=== PATIENT | female | born 1965 | race Caucasian/White ===

== ENCOUNTER 2019-09-27 14:42 | Emergency (ER) | payer SELFPAY ==
--- NOTE | 2019-09-27 15:31 | EDM.PDOC ---
ED HPI GENERAL MEDICAL PROBLEM - General Chief Complaint: Upper Extremity Injury/Pain Stated Complaint: left wrist pain Time Seen by Provider: 09/27/19 15:00 Source of Information: Reports: Patient History Limitations: Reports: No Limitations - History of Present Illness INITIAL COMMENTS - FREE TEXT/NARRATIVE: She is complaining of pain in the left wrist. Diffuse aching pain, increased with any active movement. States she has had pain for a year. More severe pain and swelling since yesterday. Pain is most severe at the base of the thumb. No injury she is aware of. No recent change in activity. She has been taking ibuprofen 1-2 times daily. No other treatment. Treatments REGISTERED PHLEBOTOMIST PART TIME: Reports: NSAIDS Left Wrist Pain Score (Numeric/FACES): 10 - Related Data Allergies Allergy/AdvReac Type Severity Reaction Status Date / Time No Known Allergies Allergy Verified 09/27/19 14:48 Home Meds: Home Meds Acetaminophen [Tylenol] 650 mg PO Q4HR PRN 09/27/19 [History] Ibuprofen 2 - 3 tab PO Q6HR PRN 09/27/19 [History] Past Medical History - Past Health History Medical/Surgical History: Denies Medical/Surgical History Social & Family History - Tobacco Use Smoking Status *Q: Current Every Day Smoker Years of Tobacco use: 40 Packs/Tins Daily: 0.2 Used Tobacco, but Quit: No Second Hand Smoke Exposure: Yes - Caffeine Use Caffeine Use: Reports: Coffee - Recreational Drug Use Recreational Drug Use: No Review of Systems - Review of Systems Review Of Systems: See Below Constitutional: Reports: No Symptoms Eyes: Reports: No Symptoms Ears: Reports: No Symptoms Nose: Reports: No Symptoms Mouth/Throat: Reports: No Symptoms Respiratory: Reports: No Symptoms Cardiovascular: Reports: No Symptoms GI/Abdominal: Reports: No Symptoms Genitourinary: Reports: No Symptoms Musculoskeletal: Reports: Joint Pain Skin: Reports: No Symptoms Neurological: Reports: No Symptoms Psychiatric: Reports: No Symptoms ED EXAM, GENERAL - Physical Exam Exam: See Below Free Text/Narrative:: Healthy appearing woman in no acute distress. Left wrist: Mild diffuse swelling. No discoloration or warmth to touch. Sharp tenderness at the first CMC joint. Mild diffuse tenderness otherwise. 45 degrees flexion and extension limited by pain. Negative tinnel test. Right Wrist: No swelling or deformity. No tenderness Full ROM without pain. General Appearance: Alert, No Apparent Distress Course - Vital Signs Last Recorded V/S: Last Vital Signs Temp 36.1 C 09/27/19 14:59 Pulse 96 09/27/19 14:59 Resp 18 09/27/19 14:59 BP 113/76 09/27/19 14:59 Pulse Ox 94 L 09/27/19 14:59 - Orders/Labs/Meds Orders: Active Orders 24 hr Category Date Time Status Wrist Comp Min 3V Lt [CR] Stat Exams 09/27/19 14:47 Taken - Radiology Interpretation Free Text/Narrative:: X-RAY 3 views of the left wrist: Findings: Severe DJD in the 1st MCP joint. Mild diffuse joint space narrowing. No fracture. Impression: DJD without acute process. Departure - Departure Time of Disposition: 15:30 Disposition: Home, Self-Care 01 Condition: Good Clinical Impression: Left wrist pain - Discharge Information *PRESCRIPTION DRUG MONITORING PROGRAM REVIEWED*: No *COPY OF PRESCRIPTION DRUG MONITORING REPORT IN PATIENT JANE: No Referrals: Shawanda Rodriguez PA-C [Primary Care Provider] - Forms: ED Department Discharge Additional Instructions: Ice the wrist for 15 minutes 3-4 times daily. Demonstrated ROM exercises to be done several times daily. Ibuprofen 800 mg 3 times daily for 1 week. Follow up in clinic if not improving. 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 Ice the wrist for 15 minutes 3-4 times daily. Demonstrated ROM exercises to be done several times daily. Ibuprofen 800 mg 3 times daily for 1 week. Follow up in clinic if not improving.
--- NOTE | 2019-09-27 15:47 | PCM.DCSUM1 ---
Discharge Summary - Hospital Course Free Text/Narrative:: Ice the wrist for 15 minutes 3-4 times daily. Demonstrated ROM exercises to be done several times daily. Ibuprofen 800 mg 3 times daily for 1 week. Follow up in clinic if not improving. 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 SNOMED Code(s): 18721180, 078726561 ICD Code: M18.12 - UNIL PRIMARY OSTEOARTH OF FIRST CARPOMETACARP JOINT, L HAND Status: Acute - Discharge Plan *PRESCRIPTION DRUG MONITORING PROGRAM REVIEWED*: No *COPY OF PRESCRIPTION DRUG MONITORING REPORT IN PATIENT JANE: No Home Medications: Home Meds Acetaminophen [Tylenol] 650 mg PO Q4HR PRN 09/27/19 [History] Ibuprofen 2 - 3 tab PO Q6HR PRN 09/27/19 [History] Forms: ED Department Discharge Referrals: Shawanda Rodriguez PA-C [Primary Care Provider] - - Discharge Summary/Plan Comment DC Time >30 min.: No - Patient Data Vitals - Most Recent: Last Vital Signs Temp 36.1 C 09/27/19 14:59 Pulse 96 09/27/19 14:59 Resp 18 09/27/19 14:59 BP 113/76 09/27/19 14:59 Pulse Ox 94 L 09/27/19 14:59
== END 2019-09-27 15:15 | disposition home or self-care (01) ==
LOC: LL.ED 14:42
DX: M18.12 Unilateral primary osteoarthritis of first carpometacarpal joint, left hand (principal); M25.532 Pain in left wrist; F17.210 Nicotine dependence, cigarettes, uncomplicated
CPT/HCPCS: 73110-LT; 99282; 99283-25